=== PATIENT | male | born 1995 | race American Indian/Alaskan Native ===

== ENCOUNTER 2017-11-04 19:58 | Emergency (ER) | payer BC, OTHER ==
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
[2017-11-04] MEDS ORDERED: TYLENOL PO ONE (22:08)
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
[2017-11-05 01:15] VITALS: BP 117/55
== END 2017-11-04 23:11 | disposition home or self-care (01) ==
LOC: ED 19:58
DX: R51 Headache (principal); M54.2 Cervicalgia; M54.5 Low back pain; Z87.820 Personal history of traumatic brain injury; V87.7XXA Person injured in collision between other specified motor vehicles (traffic), initial encounter; Y93.89 Activity, other specified; Y99.8 Other external cause status; Y92.410 Unspecified street and highway as the place of occurrence of the external cause
CPT/HCPCS: 70450; 72125; 72131; 99283

== ENCOUNTER 2018-01-20 09:39 | Outpatient (CLI) | payer OTHER | END 2018-01-20 09:40 | disposition home or self-care (01) | LOC: LAB 09:39 | PROVIDERS: ATTEND Psychiatry & Neurology Psychiatry | DX: F31.64 Bipolar disorder, current episode mixed, severe, with psychotic features (principal) | CPT/HCPCS: 36415; 80164 ==

== ENCOUNTER 2020-12-06 13:37 | Emergency (ER) | payer SELFPAY ==
[2020-12-06 14:42] VITALS: BP 128/82
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
== END 2020-12-06 16:23 | disposition home or self-care (01) ==
LOC: ED 13:37
DX: J02.9 Acute pharyngitis, unspecified (principal); F17.200 Nicotine dependence, unspecified, uncomplicated; Z72.89 Other problems related to lifestyle; Z79.899 Other long term (current) drug therapy; Z98.890 Other specified postprocedural states
CPT/HCPCS: 99282